=== PATIENT | female | born 1950 | race Caucasian/White ===

== ENCOUNTER 2022-03-01 09:34 | Outpatient (CLI) | payer MEDICARE, BC | END 2022-03-01 23:59 | disposition home or self-care (01) | LOC: LAB 09:34 | PROVIDERS: ATTEND Specialist | DX: Z01.812 Encounter for preprocedural laboratory examination (principal); Z20.822 Contact with and (suspected) exposure to COVID-19 | CPT/HCPCS: C9803; U0003 ==

== ENCOUNTER 2022-03-07 05:20 | Inpatient (IN) | payer MEDICARE, BC ==
[~2022-03-07] VITALS: Ht 152.4 cm; Wt 51.7 kg
[2022-03-07 06:28] VITALS: BP 140/63
[2022-03-07] MEDS ORDERED: BUPIVACAINE 0.5 % PF 150 MG/30 ML VIAL ONE (06:48)
[2022-03-07] MEDS ORDERED: POLYMYXIN B SULFATE 500,000 UNITS ONE (06:48)
--- NOTE | 2022-03-07 06:54 | NUR ---
MS RN DAY SURGERY/ADMISSION NOTES PATIENT CAME IN UNIT @ 0535 BY SELF. AMBULATORY. NO S/S OF APPARENT DISTRESS. NO C/O PAIN. PATIENT IN FOR INPATIENT SURGERY OF LEFT TOTAL KNEE ARTHROPLASTY. ALL CONSENT SIGNED, CHECKLIST DONE. IV ACCESS ON R. AC #20G. MRSA SWAB OBTAINED. NEW ID BAND ON PATIENT. PATIENT BELONGINGS CHECKED AND INVENTORIED. PATIENT DENIES ANY MEDICAL HISTORY BUT FAMILY HISTORY OF CANCER WITH HER SISTER AND FATHER. ONLY ALLERGY TO COMPAZINE. WISHES TO BE FULL CODE. PATIENT WAS PICKED UP BY OR AT AROUND 0640. V/S FOLLOWS: 140/63, HR-71, SATURATION 97% ON ROOM AIR. T-98.8. WILL ENDORSE TO MORNING SHIFT RN FOR CONTINUITY OF CARE.
[2022-03-07] MEDS ORDERED: PROPOFOL 100 ML ONE (07:27)
[2022-03-07] MEDS ORDERED: MIDAZOLAM HCL 2 MG/2ML VIAL ONE (07:28)
--- NOTE | 2022-03-07 07:32 | NUR ---
MS RN NOTE REPORT GIVEN TO ALEXANDER FOR CONTINUITY OF CARE.
[2022-03-07] MEDS ORDERED: TRANEXAMIC ACID 3,000 MG in SODIUM CHLORIDE IRRIG SOLUTION 70 ML IR ONE (08:00)
[2022-03-07] MEDS ORDERED: BUPIVACAINE 0.25% 75 MG/30 ML VIAL ONE (09:33)
[2022-03-07] MEDS ORDERED: DOCUSATE SODIUM 250 MG CAPSULE PO PRN (10:30)
[2022-03-07] MEDS ORDERED: HYDROMORPHONE 1 MG/1 ML DISP.SYRIN IV PRN (10:30)
[2022-03-07] MEDS ORDERED: SENNOSIDES 8.6 MG TABLET PO PRN (10:30)
[2022-03-07] MEDS ORDERED: ACETAMINOPHEN 325 MG TABLET PO PRN (10:30)
[2022-03-07] MEDS ORDERED: ZOLPIDEM TARTRATE 5 MG TABLET PO PRN (10:30)
[2022-03-07] MEDS ORDERED: BISACODYL SUPP (10 MG) 10 MG/SUPP.RECT SUPP.RECT RC PRN ×2 (10:30)
[2022-03-07] MEDS ORDERED: HYDROCODONE/APAP 5/325MG TABLET PO PRN ×2 (10:30)
--- NOTE | 2022-03-07 10:45 | NUR ---
returned to rm. from or.vs stable john wrap and ice to lt. leg.dvt pump to rt. leg.saenz cath to gravity drainage.vitals stable.family member at bedside.iv infusing.
[2022-03-07] MEDS ORDERED: MAG HYDROX/AL HYDROX/SIMETH 30 ML UDC PO PRN (11:00)
[2022-03-07] MEDS ORDERED: oxyCODONE IR immediate release 5 MG PO PRN (11:00)
[2022-03-07] MEDS ORDERED: diphenhydrAMINE HCL 25 MG CAPSULE PO PRN (11:00)
[2022-03-07] MEDS ORDERED: LEVO75TA7 PO (11:05)
[2022-03-07] MEDS ORDERED: RALO60TA PO (11:05)
[2022-03-07] MEDS: IV LR 1000 ML 1,000 ML IV PRN ×2 (12:18→21:47)
[2022-03-07 16:01] VITALS: BP 132/59
[2022-03-07] MEDS: ANCEF 1 GM/50 ML D5W IV SCH ×2 (17:04)
[2022-03-07] MEDS: HYDROMORPHONE 1 MG/1 ML DISP.SYRIN IV PRN (17:19)
--- NOTE | 2022-03-07 18:21 | NUR ---
JUST MEDICATED FOR PAIN WITH DILAUDID INJECTION AND GIVEN SENOKOT,FOR C/O CONSTIPATION.
--- NOTE | 2022-03-07 19:27 | NUR ---
PT. STATES SHE HAS FEELING ALL THE WAY DOWN TO HER TOES.DENIES ANY NUMBNESS.DUE TO HER [place] STATUS HAVE LITERALLY BEEN WRITING OUT EVERYTHING IN ORDER TO COMMUNICATE WITH HER.
--- NOTE | 2022-03-07 19:29 | NUR ---
MS VERONICA OPENING NOTES RECEIVED PATIENT LYING IN BED AWAKE. A/O X4. HARD OF HEARING, HEARING AID AT HOME. I COMMUNICATE BY WRITING ON PAPER AND SHE VERBALLY RESPONDS. NOT IN APPARENT DISTRESS. BREATHING EVEN AND NON-LABORED IN ROOM AIR. DENIES PAIN AT THIS TIME. HAS RIGHT ANTECUBITAL IV ACCESS #20G WITH LR RUNNING AT 100 ML/HR. NO S/S OF INFILTRATION NOTED. LEFT LEG ELEVATED ON PILLOW WITH DRESSING DRY AND INTACT. HAS RIGHT LEG DVT PUMP. SAFETY PRECAUTIONS IN PLACE. WILL CONTINUE PLAN OF CARE. Addendum: 03/07/22 at 2338 by March CHARLES VERONICA HAS F/C CONNECTED TO BAG DRAINING CLEAR YELLOW URINE VIA GRAVITY.
[2022-03-07 20:00] VITALS: BP 143/60
[2022-03-07] MEDS: FAMOTIDINE (20 MG) 20 MG TABLET PO SCH (20:28)
[2022-03-07] MEDS ORDERED: CLONIDINE HCL 0.1 MG TABLET PO PRN (21:30)
--- NOTE | 2022-03-07 23:07 | NUR ---
MS RN NOTES PATIENT C/O PAIN 4/10 ON HER LEFT KNEE. ADMINISTERED PRN OXY IR, TOLERATED WELL. PROVIDED SNACKS AND EMESIS BAG WELL.
--- NOTE | 2022-03-07 23:39 | NUR ---
MS RN NOTES REMOVED RIGHT LEG DVT PUMP PER PATIENT'S REQUEST.
--- NOTE | 2022-03-08 | NUR ---
MS RN NOTES VTE RECALCULATION = 3. NOTIFIED ANNELISE RITTER. SHE SAID THAT PATIENT NEEDS TO BE CLEARED BY ORTHO SURGEON FIRST. WILL ENDORSE TO AM NURSE.
[2022-03-08] MEDS: ANCEF 1 GM/50 ML D5W IV SCH ×2 (00:03)
[2022-03-08] MEDS: ONDANSETRON HCL/PF 4 MG/2 ML VIAL IVP PRN ×2 (01:05→11:38)
--- NOTE | 2022-03-08 01:05 | NUR ---
MS RN NOTES COVERING RN WHILE I'M ON BREAK ENDORSED THAT PATIENT HAD EMESIS AND GAVE ME ZOFRAN THAT SHE PULLED OUT FROM OMNICELL. PER PATIENT, SHE FILLED UP ONE EMESIS BAG. ADMINISTER ZOFRAN, TOLERATED WELL.
[2022-03-08] MEDS: HYDROMORPHONE 1 MG/1 ML DISP.SYRIN IV PRN ×2 (01:46→11:39)
--- NOTE | 2022-03-08 01:49 | NUR ---
MS RN NOTES PATIENT C/O PAIN 9/10 ON HER LEFT KNEE. NO ACUTE DISTRESS NOTED. PRN DILAUDID 0.5 MG ADMINISTERED AND TOLERATED WELL. NO C/O N/V AT THIS TIME.
--- NOTE | 2022-03-08 06:29 | NUR ---
MS RN CLOSING NOTES PATIENT LYING IN BED WITH EYES CLOSED. EASY TO AROUSE. A/O X4. TOLERATING ROOM AIR WELL. NO C/O PAIN OR DISCOMFORT AT THIS TIME. HAS RIGHT ANTECUBITAL IV ACCESS #20G WITH LR RUNNING AT 100 ML/HR. INTACT, PATENT AND FLUSHING. LEFT LEG ELEVATED ON PILLOW WITH DRESSING DRY AND INTACT. URINE OUTPUT 500 ML. NO BM DURING THIS SHIFT. SAFETY PRECAUTIONS IN PLACE: BED LOW AND LOCKED, SIDE RAILS UP X2, CALL LIGHT WITHIN REACH.
[2022-03-08 07:23] LABS: BASOPHILS % (AUTO) 0.1 % (0.0-2.0); HEMATOCRIT 34 % (33-45); HEMOGLOBIN 11.5 g/dL (11.5-14.8); LYMPHOCYTES # (AUTO) 1.3 K/uL (0.8-4.8); LYMPHOCYTES % (AUTO) 17.4 % (20.0-44.0); MEAN CORPUSCULAR HGB CONC 34 g/dl (31.0-36.0); MEAN CORPUSCULAR VOLUME 93 fL (82-100); MONOCYTES # (AUTO) 0.6 K/uL (0.1-1.30); MONOCYTES % (AUTO) 7.8 % (2.0-12.0); NEUTROPHILS # (AUTO) 5.8 K/uL (1.8-8.9); NEUTROPHILS % (AUTO) 74.7 % (43.0-81.0); PLATELET COUNT (AUTO) 160 K/uL (150-450); RED BLOOD CELL COUNT(AUTO) 3.65 MIL/uL (4.0-5.2); WHITE BLOOD COUNT (AUTO) 7.7 K/uL (4.3-11.0)
[2022-03-08 07:37] LABS: CALCIUM, SERUM 6.5 mg/dL (8.5-10.1); CARBON DIOXIDE 28 mmol/L (21-32); CHLORIDE 98 mmol/L (98-107); CREATININE 0.8 mg/dL (0.6-1.3); GLUCOSE 139 mg/dL (74-106); MAGNESIUM 1.7 mg/dL (1.8-2.4); POTASSIUM 3.8 mmol/L (3.5-5.1); SODIUM SERUM 132 mmol/L (136-145); UREA NITROGEN, BLOOD 13 mg/dL (7-18)
--- NOTE | 2022-03-08 07:45 | NUR ---
RN OPENING NOTES Patient seen comfortably lying in bed, no shortness of breath, no apparent distress noted, breathing even and unlabored, denies any pain or discomfort at this time, no grimacing. Call light left within reach, safety precautions in place, brakes locked, side rails up X 2.
[2022-03-08 08:00] VITALS: BP 128/53
[2022-03-08] MEDS: ASPIRIN EC 325 MG TABLET.DR PO SCH (09:34)
[2022-03-08] MEDS: IV LR 1000 ML 1,000 ML IV PRN (09:34)
[2022-03-08] MEDS: LEVOTHYROXINE SODIUM 75 MCG TABLET PO SCH (09:34)
[2022-03-08] MEDS: RALOXIFENE 60 MG TABLET PO SCH (09:34)
[2022-03-08] MEDS: FAMOTIDINE (20 MG) 20 MG TABLET PO SCH ×2 (09:35→20:57)
[2022-03-08] MEDS: DOCUSATE SODIUM 100 MG CAPSULE PO SCH ×2 (09:35→16:39)
[2022-03-08] MEDS ORDERED: MAGNESIUM OXIDE 400 MG TABLET PO ONE (10:00)
[2022-03-08] MEDS ORDERED: POLYETHYLENE GLYCOL 3350 17 GM POWD.PACK PO PRN (11:00)
[2022-03-08 16:00] VITALS: BP 125/55
--- NOTE | 2022-03-08 18:30 | NUR ---
Chappell catheter was removed per hospitalist order, no hematuria, and no unusual odor noted in urine, no grimacing when bladder palpated, bladder non distended during shift.
--- NOTE | 2022-03-08 18:30 | NUR ---
RN CLOSING NOTES Patient lying in bed, no shortness of breath, breathing even and unlabored, no apparent distress noted, no dizziness, no palpitations, no chest pain. All due medications given as per MD order, tolerating well. Pain medication given as needed when non pharmacological measures ineffective. Patient has an ongoing IV fluid for hydration (LR at 100ml/hr), infusing well on her right antecubital, site covered with dry dressings, intact and flushing well, no redness, no swelling noted, no s/s of infiltration at this time. Patient S/P left total knee arthroplasty, site covered with ojhn bandage, clean and dry, no s/s of circulation impairment noted at this time, skin warm to touch, no pallor or cyanosis noted, pulse present during shift, no swelling noted at this time. Chappell catheter draining clear yellowish urine free from any sediments, no hematuria, and no unusual odor noted in urine, no grimacing when bladder palpated, bladder non distended during shift. Kept clean and dry, all needs anticipated, aspiration precautions rendered, call light left within reach, safety precautions in place, brakes locked, side rails up X 2.
[2022-03-08 20:00] VITALS: BP 112/41
--- NOTE | 2022-03-08 20:00 | NUR ---
RN NOTE PT ASSISTED TO BR, AMBULATED SLOWLY WITH WALKER. PT ABLE TO VOID WELL.
[2022-03-09] MEDS: IV LR 1000 ML 1,000 ML IV PRN (02:58)
--- NOTE | 2022-03-09 03:08 | NUR ---
RN NOTE R-AC IV SITE ACCIDENTALLY PULLED OUT WHEN PT WENT TO COMMODE. RESTARTED IV TO R-FA #22G X1 WITH GOOD BLOOD RETURN. CONT'D IVF LR @100ML/HR.
--- NOTE | 2022-03-09 06:53 | NUR ---
RN NOTE PT RESTING IN BED, EASILY AROUSABLE. REPORTS TOLERABLE PAIN TO L-KNEE SX SITE. PT DOES NOT WANT TO TAKE PAIN MEDS. PT HAS BEEN USING BEDSIDE COMMODE TO VOID, AND ABLE TO TRANSFER FROM BED TO COMMODE WITH NURSE SUPERVISION. PT IN NO ACUTE DISTRESS. SAFETY MEASURES MAINTAINED.
--- NOTE | 2022-03-09 07:15 | NUR ---
RN OPENING NOTES RECEIVED PATIENT IN BED, AWAKE, VERBALLY RESPONSIVE, NO SIGNS OF ACUTE DISTRESS NOTED. ON ROOM AIR, TOLERATING WELL. NO SOB NOTED, BREATHING EVEN AND UNLABORED. DENIES ANY PAIN AT THIS TIME. WITH IV ACCESS ON RIGHT FOREARM #22G INTACT AND PATENT WITH LR @100ML/HR INFUSING WELL. SAFETY MEASURE PROVIDED. WILL CONTINUE TO MONITOR PATIENT.
[2022-03-09] MEDS: RALOXIFENE 60 MG TABLET PO SCH (08:30)
[2022-03-09] MEDS: LEVOTHYROXINE SODIUM 75 MCG TABLET PO SCH (08:30)
[2022-03-09] MEDS: FAMOTIDINE (20 MG) 20 MG TABLET PO SCH (08:30)
[2022-03-09] MEDS: ASPIRIN EC 325 MG TABLET.DR PO SCH (08:30)
[2022-03-09] MEDS: DOCUSATE SODIUM 100 MG CAPSULE PO SCH (08:30)
[2022-03-09 08:40] VITALS: BP 130/64
[2022-03-09] MEDS ORDERED: ASPI-992 PO (12:30)
--- NOTE | 2022-03-09 15:50 | NUR ---
AFFILIATE MARKETING MANAGER NOTES PATIENT DISCHARGED HOME IN STABLE CONDITION. REMAINS ALERT AND ORIENTED X4, VERBALLY RESPONSIVE, NO SIGNS OF ACUTE DISTRESS NOTED. ALL BELONGINGS ACCOUNTED FOR. FORM SIGNED BY PATIENT. DISCHARGE INSTRUCTIONS AND HEALTH TEACHINGS PROVIDED TO PATIENT AND WITH VERBALIZATION OF UNDERSTANDING. IV LINE REMOVED NO ACTIVE BLEEDING NOTED, COVERED WITH DRY DRESSING. ARM NAME BAND REMOVED. PATIENT LEFT UNIT @1545, ACCOMPANIED BY ADAMA Edgar TO THE LOBBY AND WILL. CN AWARE OF DISCHARGE.
== END 2022-03-09 15:45 | disposition home health service (06) | DRG 470 ==
LOC: DS 05:20 → MED 05:22
PROVIDERS: ADMIT Specialist; ATTEND Specialist
PROC: 0SRD0J9 Replacement of Left Knee Joint with Synthetic Substitute, Cemented, Open Approach (ICD-10-PCS; principal; 2022-03-07)
DX: M17.12 Unilateral primary osteoarthritis, left knee (principal); Z20.822 Contact with and (suspected) exposure to COVID-19; M19.90 Unspecified osteoarthritis, unspecified site; E78.5 Hyperlipidemia, unspecified; Z80.9 Family history of malignant neoplasm, unspecified; H91.90 Unspecified hearing loss, unspecified ear; E03.9 Hypothyroidism, unspecified
CPT/HCPCS: 36415; 80048-TC; 83735-TC; 85025-TC; 97116-TC; 97530-TC; 97760-TC; A4217; C1713; C1776; G0378; J0690; J1170; J2250; J2405; J3490; J7030; J7060; J7120